=== PATIENT | female | born 1935 | race Caucasian/White ===

== ENCOUNTER 2017-03-28 09:49 | Day surgery (SDC) | payer MEDICARE ==
[~2017-03-28] VITALS: Ht 170.2 cm; Wt 89.4 kg
[~2017-03-28 09:49] MED LIST: ALDACTONE 25MG25 MG PO; ASPIRIN 81MG TA81 MG PO; AZITHROMYCIN250 M1 PO; BUSPAR 10MG TAB10 MG PO; CARBAMAZEPINE200 M1 PO; CARDIZEM CD 18180 MG OR; CARVEDILOL6.25 MG PO; CELEXA 20MG TAB20 MG PO; CELEXA20 MG PO; COUMADIN 10MG T10 MG PO; CRESTOR40 MG PO; DELTASONE20 MG PO; DIGITEK250 MCG PO; DULOXETINE 30MG30 MG PO; DULOXETINE60 MG PO; FUROSEMIDE40 MG PO; GABAPENTIN 400400 MG PO; HUMALOG100 U/M1 SC; LANTUS INS100 UNITS/ SC; LEVOTHYROXIN0.125 MG PO; LISINOPRIL 20MG20 MG PO; LISINOPRIL 5MG T5 MG PO; METFORMIN HCL850 MG PO; Novolog100 U/ML SC; OMNICEF 300 MG300 MG PO; PREDNISONE20 MG PO; PRILOSEC40 MG PO; REGLAN 5MG TABLE5 MG PO; VENTOLIN H0.09 MG/Ac IH; WARFARIN SOD5 MG PO; WARFARIN SODIU7.5 MG PO; WARFARIN SODIUM1 MG PO; ZITHROMAX Z-PA250 M2 PO
--- NOTE | 2017-03-28 11:32 | Operative Note ---
Colonoscopy ([facility]) Procedure date: 03/28/17 Date of : 39 Procedure:Colonoscopy Colonoscopy with cold snare polypectomy Indications: Mrs. Stone is a 81-year-old female who is here for follow-up screening/ surveillance colonoscopy. She had multiple adenomatous colon polyps removed one year ago with a very tortuous colon. The patient has had chronic constipation, bloating, gassiness and generalized abdominal discomfort. She does have a history of IBS. The patient had an EGD in October 2016 showing bile reflux with linear reactive gastritis, small hiatal hernia and some esophageal dyskinesia. She reports no significant rectal bleeding, weight loss or family history of colon cancer. Performing Provider: Kirsten Canela MD Referrring Provider: Rishi Alfaro M.D. Sedation: MAC sedation Procedure: Prior to the procedure, a history and physical exam was performed, and patient medications and allergies were reviewed. The risks and benefits of the procedure and the sedation options and risks were discussed with the patient. All questions were answered and informed consent was obtained. Patient identification and proposed procedure were verified by the physician and the nurse. The patient was placed in a left lateral decubitus position. Throughout the procedure, the patient's blood pressure, pulse, and oxygen saturations were monitored continuously. Findings: On digital rectal examination there was normal rectal tone. There were no external hemorrhoids. The colonoscope was introduced through the anal canal to the rectum and advanced to the cecum. The ileocecal valve and appendiceal orifice were identified. The scope was advanced a short distance into the ileum which appeared grossly normal. The scope was then withdrawn into the colon. There were 7 colon polyps identified in the cecal 3, ascending 2, descending 1 and sigmoid 1. These ranged in size from 5-10 mm and were all removed via cold snare polypectomy. There were scattered diverticuli throughout the colon but more predominantly in the descending and sigmoid colon (LEFT colon). The rectum itself was normal. Upon retroflexion within the rectum there were grade 1 internal hemorrhoids. Impressions: 1. Colonic polyps 7 2. Pandiverticulosis 3. Grade 1 internal hemorrhoids Recommendations: I will follow up the polyp histology and recommend repeat screening/surveillance colonoscopy again in 2 years based upon the size, number and nature of these polyps. I would encourage her to resume a fiber bowel regimen, low-dose Reglan and low- dose or treatment for her visceral sensitivity. She does have long-standing IBS and functional dyspepsia. Complications: None EBL (ml): 0 at 1131
[2017-03-28 12:33] VITALS: BP 116/64
== END 2017-03-28 12:20 | disposition home or self-care (01) ==
LOC: SDC 09:49
PROVIDERS: Internal Medicine Gastroenterology
PROC: 0DBN8ZX Excision of Sigmoid Colon, Via Natural or Artificial Opening Endoscopic, Diagnostic (ICD-10-PCS; 2017-03-28)
PROC: 0DBM8ZX Excision of Descending Colon, Via Natural or Artificial Opening Endoscopic, Diagnostic (ICD-10-PCS; 2017-03-28)
PROC: 0DBK8ZX Excision of Ascending Colon, Via Natural or Artificial Opening Endoscopic, Diagnostic (ICD-10-PCS; 2017-03-28)
PROC: 0DBH8ZX Excision of Cecum, Via Natural or Artificial Opening Endoscopic, Diagnostic (ICD-10-PCS; principal; 2017-03-28 10:00)
DX: Z12.11 Encounter for screening for malignant neoplasm of colon (principal); K63.5 Polyp of colon; E11.9 Type 2 diabetes mellitus without complications; Z86.010 Personal history of colon polyps

== ENCOUNTER → 2017-06-09 | Outpatient (CLI) | payer MEDICARE ==
--- NOTE | 2017-06-09 19:05 | RADIOLOGY REPORT PS360 ---
MRI-UP EXT ANY JNT W/O-RT HISTORY: Right shoulder pain with limited range of motion. Unable to raise arm ROTATOR CUFF SYNDROME OF RIGHT SHOULDER ORDERING PHYSICIAN: Orion Castro MD PATIENT AGE: 82 years COMPARISON: None TECHNIQUE: Standard multiplanar multiecho sequences are performed without contrast. FINDINGS: The lateral acromion is tilted downward causing subacromial stenosis. There are mild hypertrophic changes of the acromioclavicular joint No obvious labral tear. Subscapularis tendon appears intact but is thickened distally consistent with tendinopathy/tendinosis. The infraspinatus tendon is intact. Bicipital tendon is in place. There is severe tendinopathy/tendinosis of the supraspinatus and infraspinatus tendons with thickening and heterogeneous increased T2 signal of the tendons. A full-thickness tear involves the supraspinatus tendon posteriorly in the infra acromial region with some minimal retraction of the tendinous fibers proximally. Tendon thickened at this region as well. This is at the posterior aspect of the supraspinatus tendon no obvious and first benign is tendon tear. Increased T2 signal involves the humeral head in the subcortical region of the greater tuberosity consistent with bone marrow edema IMPRESSION: 1. Downsloping lateral acromion with subacromial stenosis with full-thickness tear of the supraspinatus tendon posteriorly with associated tendinopathy/tendinosis of the supraspinatus and infraspinatus tendons as well as subscapularis tendon. 2. Subcortical cystic changes of the humeral head with bone marrow edema
== END ==
LOC: RAD 09:30
DX: M75.101 Unspecified rotator cuff tear or rupture of right shoulder, not specified as traumatic (principal); S46.811A Strain of other muscles, fascia and tendons at shoulder and upper arm level, right arm, initial encounter